=== PATIENT | female | born 1940 | race Caucasian/White ===

== ENCOUNTER 2016-10-10 13:30 | Emergency (ER) | payer MEDICARE, BC ==
[~2016-10-10] VITALS: Ht 177.8 cm; Wt 89.8 kg
[~2016-10-10 13:30] MED LIST: LORA0.5T96 PO
[2016-10-10 13:43] VITALS: BP 124/64
[2016-10-10] MEDS ORDERED: HYDR-971 PO (13:57)
--- NOTE | 2016-10-10 13:57 | PHYS DOC ---
Past Medical History Past Medical History: Depression, Hypertension, P.U.D. Past Surgical History: Tonsillectomy, Other Additional Past Surgical Histo: d&c Alcohol Use: None Drug Use: None Adult General Chief Complaint Chief Complaint: KNEE INJURY [facility] HPI Patient is a 76 year old female who presents emergency room secondary to ongoing left knee pain for approximately patient states she twisted it while she was moving. Patient was seen at urgent care approximately 4-1/2 weeks ago and had x-rays performed. Evidently, there is no evidence of bony injury. Patient was advised to follow-up with orthopedic surgeon. Patient portions appointment with Dr. Davis on the of this month. Patient states that she was taking naproxen for knee pain and it is not been helping. She has not followed up with her primary care doctor is at this point. Review of Systems Review of Systems Constitutional: Denies fever or chills [] Eyes: Denies change in visual acuity, redness, or eye pain [] HENT: Denies nasal congestion or sore throat [] Respiratory: Denies cough or shortness of breath [] Cardiovascular: No additional information not addressed in HPI [] GI: Denies abdominal pain, nausea, vomiting, bloody stools or diarrhea [] : Denies dysuria or hematuria [] Musculoskeletal: Denies back pain or joint pain [] Integument: Denies rash or skin lesions [] Neurologic: Denies headache, focal weakness or sensory changes [] Endocrine: Denies polyuria or polydipsia [] Allergies Allergies Allergies Coded Allergies Type Severity Reaction Last Updated Verified neomycin Allergy Intermediate 06/27/16 Yes Physical Exam Physical Exam Constitutional: Well developed, well nourished, no acute distress, non-toxic appearance. [] HENT: Normocephalic, atraumatic, bilateral external ears normal, oropharynx moist, no oral exudates, nose normal. [] Eyes: PERRLA, EOMI, conjunctiva normal, no discharge. [] Neck: Normal range of motion, no tenderness, supple, no stridor. [] Cardiovascular:Heart rate regular rhythm, no murmur [] Lungs & Thorax: Bilateral breath sounds clear to auscultation [] Abdomen: Bowel sounds normal, soft, no tenderness, no masses, no pulsatile masses. [] Skin: Warm, dry, no erythema, no rash. [] Back: No tenderness, no CVA tenderness. [] Extremities: Left knee is without fusiform swelling or erythema. There is no high riding patella. Flexor and extensor mechanism intact. Patient's primary of pain is in the infrapatellar region along the patellar tendon and medial joint line. There is no palpable defect, deformity, instability or crepitus. Ligaments are stable solid endpoints. Neurologic: Alert and oriented X 3, normal motor function, normal sensory function, no focal deficits noted. [] Psychologic: Affect normal, judgement normal, mood normal. [] Current Patient Data Vital Signs Vital Signs Date Time Temp Pulse Resp B/P Pulse Ox O2 Delivery O2 Flow Rate FiO2 10/10/16 13:43 98.1 80 20 97 Room Air 98.1 EKG EKG [] Radiology/Procedures Radiology/Procedures [] Course & Med Decision Making Course & Med Decision Making Pertinent Labs and Imaging studies reviewed. (See chart for details) [] Dragon Disclaimer Dragon Disclaimer This electronic medical record was generated, in whole or in part, using a voice recognition dictation system. Departure Departure Impression: Primary Impression: Left knee pain Disposition: HOME, SELF-CARE Condition: GOOD Referrals: KALEB ARIAS Jr, MD (PCP) Patient Instructions: Knee Pain, [id number] Additional Instructions: 1. Take the medication as prescribed. 2. Contact your primary care doctor Wednesday to schedule follow-up appointment as a bridge to see the orthopedic doctor. 3. Review the discharge instructions provided for self-care and reasons to return to the emergency department. Scripts Hydrocodone/Apap 5-325 ([place] 5-325 Tablet)1 Each Tablet1 Tab PO PRN Q6HRS PRN PAIN #15 TAB Prov:GREG ALEXANDER 10/10/16 GREG ALEXANDER Oct 10, 2016 13:57
== END 2016-10-10 14:16 | disposition home or self-care (01) ==
LOC: ER 13:30
DX: M25.562 Pain in left knee (principal); I10 Essential (primary) hypertension; Z88.1 Allergy status to other antibiotic agents
CPT/HCPCS: 99283